=== PATIENT | female | born 1980 | race Caucasian/White ===

== ENCOUNTER 2019-02-22 14:47 | Emergency (ER) | payer OTHER ==
[2019-02-22 15:22] VITALS: BP 122/83
--- NOTE | 2019-02-22 17:51 | UC ---
Skin Complaint HPI - HPI Summary HPI Summary: 38 yo WF p/w erythematous raised rash that started on B/L arms now going on LW and abdomen, it is ithcy, deneis sock contacts, new lotions, foods/meds/abx. 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 PT does report having had her MMR vaccine as a child BUT did have chicken pox TWICE, (may have insufficient titers to varicella but not known if she has adequate titers to MMR). Currently denies sore throatmf/c/n/v/d, looks well, and kid at home are well - History of Current Complaint Chief Complaint: UCRash Time Seen by Provider: 02/22/19 16:16 Stated Complaint: COUGH Hx Obtained From: Patient Hx Last Menstrual Period: 02/22/19 Onset/Duration: Lasting Days Skin Exposure Onset/Duration: Days Ago Onset Severity: Moderate Current Severity: Moderate Pain Intensity: 0 Location: Diffuse Character: Pruritus, Redness, Raised Aggravating Factor(s): Nothing - Allergy/Home Medications Allergies/Adverse Reactions: Allergies Allergy/AdvReac Type Severity Reaction Status Date / Time amoxicillin Allergy Rash Verified 02/22/19 15:23 Sulfa (Sulfonamide Allergy Rash Verified 02/22/19 15:22 Antibiotics) PMH/Surg Hx/FS Hx/Imm Hx Previously Healthy: Yes - Surgical History Surgical History: None Surgery Procedure, Year, and Place: 2009 APPENDECTOMY [facility] - Social History Alcohol Use: None Substance Use Type: None Substance Use Comment - Amount & Last Used: Former Drug User NONE SINCE BEFORE 2009 Smoking Status (MU): Never Smoked Tobacco Have You Smoked in the Last Year: No - Immunization History Most Recent Influenza Vaccination: 2013 Most Recent Tetanus Shot: 2013 Most Recent Pneumonia Vaccination: n/a Review of Systems All Other Systems Reviewed And Are Negative: Yes - Comments Additional Review of Systems Comments: Constitutional: Negative Eyes: Negative ENT: Negative Cardiovascular: Negative Respiratory: Negative Gastrointestinal: Negative Musculoskeletal: Negative Skin: sudden rash Neurological: Negative Psychological: Normal Physical Exam - Summary Physical Exam Summary: Vital Signs Reviewed: Yes Appearance: Positive: No Pain Distress Skin: Positive: Warm, pruritic raised 5-6mm rash on all extremities and mildly spreading to trunk Head/Face: Positive: Normal Head/Face Inspection Eyes: Positive: Normal ENT: Positive: Normal ENT inspection Neck: Positive: Supple Respiratory/Lung Sounds: Positive: Clear to Auscultation Cardiovascular: Positive: Normal, RRR, S1, S2 Abdomen Description: Positive: Nontender Musculoskeletal: Positive: Normal Neurological: Positive: CN Intact II-III Psychiatric: Positive: Normal Vital Signs: Initial Vital Signs Temp 37.2 C 02/22/19 15:17 Pulse 95 02/22/19 15:17 Resp 16 02/22/19 15:17 BP 122/83 02/22/19 15:17 Pulse Ox 100 02/22/19 15:17 Course/Dx - Diagnoses Provider Diagnosis: Rash and nonspecific skin eruption Discharge - Sign-Out/Discharge Documenting (check all that apply): Patient Departure All imaging exams completed and their final reports reviewed: Yes - Discharge Plan Condition: Stable Disposition: HOME Prescriptions: Betamethasone Mary Jo 0.1% CRM(NF) [Valisone 0.1% CM(NF)] 1 applic TOPICAL DAILY 10 Days #1 tube methylPREDNISolone [Medrol] 4 mg PO DAILY 6 Days #21 [email or web address] Patient Education Materials: Acute Rash (ED) Referrals: Diana Estevez MD [Primary Care Provider] - Additional Instructions: please call on monday or monday for your antibody titer results for MMR and make sure you have adequate immunity againeast measles, mumps and rubella - Billing Disposition and Condition Condition: STABLE Disposition: Home
--- NOTE | 2019-02-24 11:56 | UC ---
- Progress Note Progress Note: Rubella screen results reviewed: She is immune. Measles, mumps and varivcella testing pending No change in plan Course/Dx - Diagnoses Provider Diagnoses: Rash and nonspecific skin eruption Discharge - Sign-Out/Discharge Documenting (check all that apply): Post-Discharge Follow Up All imaging exams completed and their final reports reviewed: Yes - Discharge Plan Condition: Stable Disposition: HOME Prescriptions: Betamethasone Mary Jo 0.1% CRM(NF) [Valisone 0.1% CM(NF)] 1 applic TOPICAL DAILY 10 Days #1 tube methylPREDNISolone [Medrol] 4 mg PO DAILY 6 Days #21 [email or web address] Patient Education Materials: Acute Rash (ED) Referrals: Diana Estevez MD [Primary Care Provider] - Additional Instructions: please call on monday or monday for your antibody titer results for MMR and make sure you have adequate immunity againeast measles, mumps and rubella - Billing Disposition and Condition Condition: STABLE Disposition: Home
[2019-02-25 13:21] LABS: Mumps Virus IgG Antibody Positive
[2019-02-25 13:24] LABS: Rubeola IgG Antibody Index 3.1; Varicella IgG Antibody Index 2.5; Varicella-Zoster IgG Antibody Positive
--- NOTE | 2019-02-25 17:56 | UC ---
- Progress Note Progress Note: 02/25/2019 Rubeola: positive immunity Varicella: positive immunity Mumps: positive immunity Still pending the [facility] public address technician panel. NO change Kasandra Washington PA-C Course/Dx - Diagnoses Provider Diagnoses: Rash and nonspecific skin eruption Discharge - Sign-Out/Discharge Documenting (check all that apply): Post-Discharge Follow Up All imaging exams completed and their final reports reviewed: Yes - Discharge Plan Condition: Stable Disposition: HOME Prescriptions: Betamethasone Mary Jo 0.1% CRM(NF) [Valisone 0.1% CM(NF)] 1 applic TOPICAL DAILY 10 Days #1 tube methylPREDNISolone [Medrol] 4 mg PO DAILY 6 Days #21 [email or web address] Patient Education Materials: Acute Rash (ED) Referrals: Diana Estevez MD [Primary Care Provider] - Additional Instructions: please call on monday or monday for your antibody titer results for MMR and make sure you have adequate immunity againeast measles, mumps and rubella - Billing Disposition and Condition Condition: STABLE Disposition: Home
[2019-02-26 00:10] LABS: Varicella-Zoster IgM Antibody Negative (Negative)
--- NOTE | 2019-02-26 09:38 | UC ---
Course/Dx - Diagnoses Provider Diagnoses: Rash and nonspecific skin eruption Discharge - Sign-Out/Discharge Documenting (check all that apply): Patient Departure, Post-Discharge Follow Up All imaging exams completed and their final reports reviewed: No Studies - Discharge Plan Condition: Stable Disposition: HOME Prescriptions: Betamethasone Mary Jo 0.1% CRM(NF) [Valisone 0.1% CM(NF)] 1 applic TOPICAL DAILY 10 Days #1 tube methylPREDNISolone [Medrol] 4 mg PO DAILY 6 Days #21 [email or web address] Patient Education Materials: Acute Rash (ED) Referrals: Diana Estevez MD [Primary Care Provider] - Additional Instructions: You have immunity to Measles and mumps. You have had Herpes zoster also known as shingles. You still can have recurrence or reactivation or shingles. Remaining labs are pending - Billing Disposition and Condition Condition: STABLE Disposition: Home
[2019-02-26 17:09] LABS: Mumps IgM Antibody Index 0.16 (0.00-0.79); Mumps Virus IgG Antibody Positive; Mumps Virus IgM Antibody Negative (Negative)
[2019-02-26 17:24] LABS: Cladosporium herbarum IgE <0.35 kU/L; Common Ragweed (Short) Allerge <0.35 kU/L; Lamb's Quarter Allergen IgE <0.35 kU/L; Oak Allergen IgE <0.35 kU/L; Timothy Grass Allergen IgE <0.35 kU/L
== END 2019-02-22 17:52 | disposition home or self-care (01) ==
LOC: UCEAST 14:47
DX: R21 Rash and other nonspecific skin eruption (principal); F19.11 Other psychoactive substance abuse, in remission; Z88.0 Allergy status to penicillin; Z88.8 Allergy status to other drugs, medicaments and biological substances
CPT/HCPCS: 36415; 86003; 86735; 86762; 86765; 86787; 99202; G0463